=== PATIENT | male | born 1955 | race African-American/Black ===

== ENCOUNTER 2022-03-31 08:45 | Emergency (ER) | payer SELFPAY ==
[~2022-03-31] VITALS: Ht 172.7 cm; Wt 61.4 kg
[~2022-03-31 08:45] MED LIST: NO MEDS
[2022-03-31 09:32] VITALS: BP 103/59
[2022-03-31] MEDS ORDERED: AMOX500C2 PO (09:44)
== END 2022-03-31 09:50 | disposition home or self-care (01) ==
LOC: EMS 08:51
DX: H66.92 Otitis media, unspecified, left ear (principal); Z98.890 Other specified postprocedural states
CPT/HCPCS: 99283; Z7502

== ENCOUNTER 2024-12-26 08:47 | Emergency (ER) | payer MEDICARE, OTHER ==
[~2024-12-26] VITALS: Ht 170.2 cm; Wt 56.8 kg
[~2024-12-26 08:47] MED LIST changes: +AMOX500C2 PO
[2024-12-26 08:56] VITALS: BP 156/74; PULSE 108; RESP 18; TEMP 98; O2SAT 99
[2024-12-26] MEDS ORDERED: LATA2.5D7 OD (08:58)
[2024-12-26] MEDS ORDERED: ROSU20TA98 PO (08:58)
[2024-12-26] MEDS ORDERED: CIPR-515 PO (08:58)
[2024-12-26] MEDS ORDERED: ASPI-1444 PO (08:58)
[2024-12-26] MEDS ORDERED: CHOL200074 PO (08:58)
== END 2024-12-26 11:15 | disposition home or self-care (01) ==
LOC: EMS 08:54
DX: S62.610A Displaced fracture of proximal phalanx of right index finger, initial encounter for closed fracture (principal); J44.9 Chronic obstructive pulmonary disease, unspecified; Z98.890 Other specified postprocedural states; Z79.82 Long term (current) use of aspirin; Z79.899 Other long term (current) drug therapy; W19.XXXA Unspecified fall, initial encounter; Y93.55 Activity, bike riding; Y92.89 Other specified places as the place of occurrence of the external cause; Y99.9 Unspecified external cause status
CPT/HCPCS: 99283